=== PATIENT | male | born 2000 ===

== ENCOUNTER 2021-05-07 16:11 | Emergency (ER) | payer OTHER ==
[~2021-05-07] VITALS: Ht 175.3 cm; Wt 59.4 kg
[2021-05-07] MEDS ORDERED: MUCINEX DM ER1 EAC1 PO (19:16)
[2021-05-07] MEDS ORDERED: MEDROLPACK PO (19:16)
[2021-05-07] MEDS ORDERED: AZITHROMYCIN500 MG PO (19:16)
== END 2021-05-07 19:32 | disposition home or self-care (01) ==
LOC: ER
DX: J06.9 Acute upper respiratory infection, unspecified (principal); Z03.818 Encounter for observation for suspected exposure to other biological agents ruled out